=== PATIENT | female | born 1990 | race Caucasian/White ===

== ENCOUNTER 2020-02-02 11:45 | Emergency (ER) | payer OTHER ==
--- NOTE | 2020-02-02 12:25 | ER Document Report ---
ED Medical Screen (RME) - General Chief Complaint: Abdominal Pain Stated Complaint: ABDOMINAL PAIN Notes: Patient is a 29-year-old -Iranian female with a history of chronic abdominal pain who was had colonoscopy in the past that was "clear", CT scan in [place] recently which she reports is only showing fibroids of the uterus and nonspecific abdominal lymphadenopathy who presents to the emergency department with a chief complaint of ongoing abdominal pain. She states it is generalized, underlying ache with occasional sharp pains all over. Admits to being associated with indigestion. She has that she had C. difficile in the past and that the feeling in the abdomen is similar but she is not having any diarrhea or fever. No recent travel or known sick contacts. No urinary complaints. Last normal menstrual cycle was last week. Denies any chest pain or shortness of breath. I have treated and performed a rapid initial assessment of this patient. A comprehensive ED assessment and evaluation of the patient, analysis of test results and completion of medical decision making process will be conducted by additional ED providers. PHYSICAL EXAMINATION: GENERAL: Well-appearing, well-nourished and in no acute distress. A&Ox4. Answers questions appropriately. - Related Data Allergies/Adverse Reactions: No Known Allergies Allergy (Verified 02/02/20 12:14) Home Medications: vitamins Past Medical History - Social History Chew tobacco use (# tins/day): No Frequency of alcohol use: Occasional Drug Abuse: None Physical Exam - Vital signs Vitals: Temp Pulse Resp BP Pulse Ox 99.4 F 85 16 131/97 H 99 02/02/20 12:02/02/20 12:02/02/20 12:02/02/20 12:02/02/20 12:06 Course - Vital Signs Vital signs: Temp Pulse Resp BP Pulse Ox 99.4 F 85 16 131/97 H 99 02/02/20 12:15 02/02/20 12:02/02/20 12:06 02/02/20 12:06 02/02/20 12:06
[2020-02-02 13:01] LABS: APPEARANCE,URINE CLEAR; BILIRUBIN,URINE NEGATIVE (NEGATIVE); COLOR,URINE STRAW; GLUCOSE, URINE NEGATIVE (NEGATIVE); KETONES,URINE TRACE mg/dL (NEGATIVE); PROTEIN,URINE NEGATIVE (NEGATIVE); URINE SPECIFIC GRAVITY 1.006; UROBILINOGEN,URINE NEGATIVE mg/dL (<2.0)
[2020-02-02 13:03] LABS: ABSOLUTE MONOCYTES (AUTO) 0.4 10^3/uL (0.1-1.4); ABSOLUTE NEUT (AUTO) 3.1 10^3/uL (1.7-8.2); BASOPHILS % (AUTO) 0.4 % (0-2); EOSINOPHILS % (AUTO) 0.3 % (0-6); HEMATOCRIT 39.9 % (36.0-47.0); HEMOGLOBIN 13.7 g/dL (12.0-15.5); LYMPHOCYTES % (AUTO) 21.7 % (13-45); MEAN CORPUSCULAR HEMOGLOBIN 29.8 pg (27.0-33.4); MEAN CORPUSCULAR HGB CONC 34.2 g/dL (32.0-36.0); MEAN CORPUSCULAR VOLUME 87 fl (80-97); MONOCYTES % (AUTO) 9.4 % (3-13); PLATELET COUNT 205 10^3/uL (150-450); RED BLOOD COUNT 4.59 10^6/uL (3.72-5.28); RED CELL DISTRIBUTION WIDTH 13.2 % (11.5-14.0); SEGMENTED NEUTROPHILS % (AUTO) 68.2 % (42-78); TOTAL CELLS COUNTED % (AUTO) 100 %; WHITE BLOOD COUNT 4.6 10^3/uL (4.0-10.5)
[2020-02-02 13:12] LABS: ALBUMIN 4.4 g/dL (3.5-5.0); ALKALINE PHOSPHATASE 100 U/L (38-126); ANION GAP 8 (5-19); ASPARTATE AMINO TRANSFERASE 25 U/L (14-36); BILIRUBIN,TOTAL 0.5 mg/dL (0.2-1.3); BLOOD UREA NITROGEN 7 mg/dL (7-20); CALCIUM 10.2 mg/dL (8.4-10.2); CARBON DIOXIDE 26 mmol/L (22-30); CHLORIDE 103 mmol/L (98-107); CREATINE KINASE 58 U/L (30-135); GLUCOSE 94 mg/dL (75-110); POTASSIUM 4.6 mmol/L (3.6-5.0); TOTAL PROTEIN 8.2 g/dL (6.3-8.2)
--- NOTE | 2020-02-02 15:57 | ER Document Report ---
ED General - General Chief Complaint: Abdominal Pain Stated Complaint: ABDOMINAL PAIN Time Seen by Provider: 02/02/20 15:04 - HPI Notes: Patient is a 29-year-old female who presents to the emergency department for evaluation of abdominal pain. She states she is had it daily since August. She states that it is in her entire abdomen, it occasionally radiates into her chest. She states it hurts when she wakes in the morning, hurts when she goes to sleep. Sometimes she has sharp and stabbing pains, they seem to be diffuse. She has had a work-up before she moved, where she lived in [facility]. She has had a CT scan, as well as colonoscopy. Colonoscopy was "normal" per patient. She was told, however, there were abnormalities on her CT scan that should be followed up with an MRI. She cannot tell me what these abnormalities are. The patient states she is lost about 15 pounds. She states her bowel movements have become more frequent over the last several weeks, she is having 4 or 5 bowel movements a day. She states that normally she was only having 1 bowel movement a day. She denies any urinary symptoms. She states her pain really has not been changed much by food, she has been keeping a food diary and has not noticed any changes there. She does get occasional nausea and indigestion type symptoms, but they are separate from her abdominal pain. - Related Data Allergies/Adverse Reactions: No Known Allergies Allergy (Verified 02/02/20 12:14) Home Medications: vitamins Past Medical History - General Information source: Patient - Social History Smoking Status: Never Smoker Chew tobacco use (# tins/day): No Frequency of alcohol use: Occasional Drug Abuse: None Family History: Malignancy - Mother passed from breast cancer, Other - Anxiety Patient has homicidal ideation: No Psychiatric Medical History: Reports: Hx Anxiety Review of Systems - Review of Systems Constitutional: See HPI Gastrointestinal: See HPI -: Yes All other systems reviewed and negative Physical Exam - Vital signs Vitals: Temp Pulse Resp BP Pulse Ox 99.4 F 85 16 131/97 H 99 02/02/20 12:06 02/02/20 12:06 02/02/20 12:06 02/02/20 12:02/02/20 12:06 - Notes Notes: This is a 29-year-old female who appears her stated age, no acute distress. Vital signs reviewed, please refer to chart. Head is normocephalic, atraumatic. Pupils equal round, reactive to light. Neck is supple without meningismus. Heart is regular rate and rhythm. Lungs are clear to auscultation bilaterally. Abdomen is scaphoid, diffusely tender without rebound or guarding, normoactive bowel sounds throughout. Extremities without cyanosis, clubbing. Posterior calves are nontender. Peripheral pulses are equal. Skin is warm and dry. Patient is awake, alert, neurological exam is nonfocal. Course - Re-evaluation Re-evalutation: 02/02/20 15:56 Patient presents to the emergency department for evaluation. She was initially seen through triage. I did evaluate the patient. Upon discussing the fact that I would need an indication for an MRI, that I did not have any old studies for comparison, the patient became very tearful. She states she is lost extensive weight, she is having multiple issues, and is very concerned about something more serious going on in her abdomen. Her laboratory investigations are unremarkable. Decision to pending as to what imaging may be necessary or appropriate at this time. Care of this patient was turned over to Dr. redmond. Please see his ED note to see the remainder of this patient's ED course and disposition. - Vital Signs Vital signs: Temp Pulse Resp BP Pulse Ox 98.3 F 83 18 113/73 98 02/02/20 22:30 02/02/20 22:30 02/02/20 22:30 02/02/20 22:30 02/02/20 22:30 - Laboratory Result Diagrams: 02/02/20 12:30 02/02/20 12:30 Laboratory results interpreted by me: 02/02/20 02/02/20 12:30 12:30 Sodium 136.7 L Urine Ketones TRACE H - Transfer of Care Care transferred to following provider: Billy Discharge - Discharge Clinical Impression: Generalized abdominal pain, Adnexal cyst Uterine fibroid Qualifiers: Uterine leiomyoma location: unspecified location Qualified Code(s): D25.9 - Leiomyoma of uterus, unspecified Condition: Good Disposition: HOME, SELF-CARE Instructions: Abdominal Pain ([facility]) Additional Instructions: Follow-up with Dr. Orozoc or Dr. Sharma gastroenterology and return to ER if symptoms persist or worsen. Take medicines as directed encourage fluids Prescriptions: Dicyclomine HCl [Bentyl 20 mg Tablet] 20 mg PO BID PRN #20 tablet PRN Reason: Pain Scale Of 1 Ondansetron [Zofran Odt 4 mg Tablet] 1 tab PO Q4H PRN #15 tab.rapdis PRN Reason: For Nausea/Vomiting Forms: Return to Work
--- NOTE | 2020-02-02 17:22 | ER Document Report ---
ED General - General Chief Complaint: Abdominal Pain Stated Complaint: ABDOMINAL PAIN Time Seen by Provider: 02/02/20 15:04 Mode of Arrival: Ambulatory Information source: Patient Notes: 29-year-old black female arrives by POV with 3 weeks when she arrived in town from [facility] recently moved. Patient lives there with her in-laws. Patient was tested recently for estrada virus and that was negative. She was having headaches and bilateral TMJ pains. Also she is been feeling a bit anxious as well. She has had a 15 pound weight loss since August of this year and denies any diarrhea constipation or vomiting but admits to poor appetite and nausea. She has smooth skin and moist skin. She denies any fine hair or hair loss. She does have 7 out of 10 abdominal pain which is diffuse. Patient stopped her green tea in October of this year thinking that may have caused her some problems because of poor appetite. She does take gummy bear vitamins on a daily basis but denies any huae-eil-okhhnyw herbal medicine otherwise. TRAVEL OUTSIDE OF THE [place] IN LAST 30 DAYS: No - HPI Onset: Other - x 5 months Onset/Duration: Sudden, Persistent, Worse Quality of pain: Achy Severity: Severe Pain Level: 4 Associated symptoms: Nausea, Weakness. denies: Vomiting, Rhinnorhea, Sinus pain/drainage, Shortness of breath, Sore throat, Sweating Exacerbated by: Food Relieved by: Denies Similar symptoms previously: Yes Recently seen / treated by doctor: Yes - Related Data Allergies/Adverse Reactions: No Known Allergies Allergy (Verified 02/02/20 12:14) Home Medications: vitamins Past Medical History - General Information source: Patient - Social History Smoking Status: Never Smoker Cigarette use (# per day): No Chew tobacco use (# tins/day): No Smoking Education Provided: No Frequency of alcohol use: Occasional Drug Abuse: None Lives with: Family Family History: Malignancy - Mother passed from breast cancer, Other - Anxiety Patient has suicidal ideation: No Patient has homicidal ideation: No Psychiatric Medical History: Reports: Hx Anxiety Review of Systems - Review of Systems -: Yes ROS unobtainable due to patient's medical condition Constitutional: No symptoms reported, See HPI, Weakness, Weight loss EENT: See HPI, Other - jaw pain Cardiovascular: No symptoms reported Respiratory: No symptoms reported Gastrointestinal: See HPI, Abdominal pain, Nausea. denies: Vomiting Genitourinary: No symptoms reported Female Genitourinary: No symptoms reported Musculoskeletal: No symptoms reported Skin: No symptoms reported Hematologic/Lymphatic: No symptoms reported Neurological/Psychological: No symptoms reported Physical Exam - Vital signs Vitals: Temp Pulse Resp BP Pulse Ox 99.4 F 85 16 131/97 H 99 02/02/20 12:06 02/02/20 12:06 02/02/20 12:06 02/02/20 12:06 02/02/20 12:06 Interpretation: Normal - General General appearance: Alert, Anxious - HEENT Head: Normocephalic, Atraumatic Eyes: Normal Pupils: PERRL Mucous membranes: Normal Pharynx: Normal Neck: Supple, Thyroid nodule, Thyromegally - Respiratory Respiratory status: No respiratory distress Chest status: Nontender Breath sounds: Normal Chest palpation: Normal - Cardiovascular Rhythm: Regular Heart sounds: Normal auscultation Murmur: No - Abdominal Inspection: Normal Distension: No distension Bowel sounds: Normal Tenderness: Nontender Organomegaly: No organomegaly - Rectal Hemorrhoids: Other - deferred - Genitourinary Bimanuel exam: Other - deferred - Back Back: Normal - Extremities General upper extremity: Normal inspection General lower extremity: Normal inspection - Neurological Neuro grossly intact: Yes Cognition: Normal Orientation: AAOx4 Paulie Coma Scale Eye Opening: Spontaneous [place] Coma Scale Verbal: Oriented Paulie Coma Scale Motor: Obeys Commands [place] Coma Scale Total: 15 Speech: Normal Motor strength normal: LUE, RUE, LLE, RLE Sensory: Normal - Psychological Associated symptoms: Anxious - Skin Skin Temperature: Warm Skin Moisture: Moist Course - Vital Signs Vital signs: Temp Pulse Resp BP Pulse Ox 98.4 F 67 16 115/70 97 02/02/20 18:52 02/02/20 18:52 02/02/20 18:52 02/02/20 18:52 02/02/20 18:52 - Laboratory Result Diagrams: 02/02/20 12:30 02/02/20 12:30 Laboratory results interpreted by me: 02/02/20 02/02/20 12:30 12:30 Sodium 136.7 L Urine Ketones TRACE H - Diagnostic Test Radiology reviewed: Reports reviewed Radiology results interpreted by me: 02/02/20 21:51 CT scans reveal uterine fibroids and adnexal cyst Discharge - Discharge Clinical Impression: Generalized abdominal pain, Adnexal cyst Uterine fibroid Qualifiers: Uterine leiomyoma location: unspecified location Qualified Code(s): D25.9 - Leiomyoma of uterus, unspecified Condition: Good Disposition: HOME, SELF-CARE Instructions: Abdominal Pain ([facility]) Additional Instructions: Follow-up with Dr. Orozco or Dr. Sharma gastroenterology and return to ER if symptoms persist or worsen. Take medicines as directed encourage fluids Prescriptions: Dicyclomine HCl [Bentyl 20 mg Tablet] 20 mg PO BID #20 tablet Forms: Return to Work
[2020-02-02 17:58] LABS: FREE T4 (FREE THYROXINE) 0.98 ng/dL (0.78-2.19)
[2020-02-02 18:12] LABS: THYROID STIMULATING HORMONE 1.95 uIU/mL (0.47-4.68)
--- NOTE | 2020-02-02 19:41 | RADIOLOGY REPORT (SQ) ---
EXAM DESCRIPTION: CT ABD/PELVIS WITH IV ONLY IMAGES COMPLETED DATE/TIME: 02/02/2020 7:27 pm REASON FOR STUDY: abd pain COMPARISON: None. TECHNIQUE: CT scan of the abdomen and pelvis performed using helical scanning technique with dynamic intravenous contrast injection. No oral contrast. Images reviewed with lung, soft tissue, and bone windows. Reconstructed coronal and sagittal MPR images reviewed. Delayed images for evaluation of the urinary system also acquired. All images stored on PACS. All CT scanners at this facility use dose modulation, iterative reconstruction, and/or weight based d osing when appropriate to reduce radiation dose to as low as reasonably achievable (ALARA). [facility]: Dose Right [facility]: CareDose [facility]: Dose Right [facility]: Teradose 4D [facility]: Smart MyLife CONTRAST TYPE AND DOSE: Not recorded here. Refer to technologist's notes. RENAL FUNCTION: None required. The patient is less than 50 years old. RADIATION DOSE: CT Rad equipment meets quality standard of care and radiation dose reduction techniq ues were employed. CTDIvol: 4.8 - 5.0 mGy. DLP: 515 mGy-cm.. LIMITATIONS: None. FINDINGS: LOWER CHEST: No significant findings. No nodules or infiltrates. LIVER: Normal size. No masses. No dilated ducts. SPLEEN: Normal size. No focal lesions. PANCREAS: No masses. No significant calcifications. No adjacent inflammation or peripancreatic fluid collections. Pancreatic duct not dilated. GALLBLADDER: No identified stones by CT criteria. No inflammatory changes to suggest cholecystitis. ADRENAL GLANDS: No significant masses or asymmetry. RIGHT KIDNEY AND URETER: No solid masses. No significant calcifications. No hydronephrosis or hyd roureter. LEFT KIDNEY AND URETER: No solid masses. No significant calcifications. No hydronephrosis or hydr oureter. AORTA AND VESSELS: No aneurysm. No dissection. Renal arteries, SMA, celiac without stenosis. RETROPERITONEUM: No retroperitoneal adenopathy, hemorrhage or masses. BOWEL AND PERITONEAL CAVITY: No masses or inflammatory changes. No free fluid or peritoneal masses. APPENDIX: Not identified. PELVIS: Prominent uterine fibroid. Urinary bladder is normal. No free fluid in the pelvis. 2 cm le ft adnexal cyst. ABDOMINAL WALL: No masses. No hernias. BONES: No significant or acute findings. OTHER: No other significant finding. IMPRESSION: No acute finding in the abdomen or pelvis. Uterine fibroid. 2 cm left adnexal cyst lorelei t is almost certainly benign. No additional imaging is required for this. TECHNICAL DOCUMENTATION: JOB ID: [id number] Quality ID # [id number]: Final reports with documentation of one or more dose reduction techniques (e.g., Au tomated exposure control, adjustment of the mA and/or kV according to patient size, use of iterative reconstruction technique) 2010 [employer]- All Rights Reserved Reading location - IP/workstation name: [email or web address]
--- NOTE | 2020-02-02 20:02 | EKG REPORT ---
SEVERITY:- NORMAL ECG - SINUS RHYTHM : Confirmed by: bAebe Porter MD 02-Feb-2020 20:00:50
[2020-02-02] MEDS ORDERED: ONDANSETRON ODT 4 MG TAB (6 TAB/ER DISP) PO PRN (22:05)
[2020-02-02 22:39] VITALS: BP 113/73
[2020-02-03 01:41] LABS: CHLAM PCR NOT DETECTED (NOT DETECT)
== END 2020-02-02 22:39 | disposition home or self-care (01) ==
LOC: ER 11:45
DX: R10.84 Generalized abdominal pain (principal); N83.8 Other noninflammatory disorders of ovary, fallopian tube and broad ligament; D25.9 Leiomyoma of uterus, unspecified; R68.84 Jaw pain; F41.9 Anxiety disorder, unspecified; R63.0 Anorexia; R11.0 Nausea
CPT/HCPCS: 36415; 74177; 80053; 81001; 81025; 82550; 83690; 84439; 84443; 84484; 85025; 86308; 87491; 87591; 93005; 93010; 99284